=== PATIENT | female | born 1985 | race Asian ===

== ENCOUNTER 2020-01-23 06:00 | Day surgery (SDC) | payer BC, SELFPAY ==
[2020-01-17 10:35] LABS: ALBUMIN 4.1 g/dL (3.4-4.8); CALCIUM 8.5 mg/dL (8.4-11.0); CREATININE 0.54 mg/dL (0.55-1.30); POTASSIUM 4.4 mmol/L (3.5-5.1); TOTAL BILIRUBIN 0.8 mg/dL (0.0-1.0)
[2020-01-17 10:40] LABS: BASOPHILS % (AUTO) 0.6 % (0.0-2.0); EOSINOPHILS # (AUTO) 0.1 K/uL (0.0-0.4); EOSINOPHILS % (AUTO) 1.5 % (0.0-4.0); HEMATOCRIT 40.7 % (36-48); LYMPHOCYTES # (AUTO) 1.5 K/uL (1.0-5.5); LYMPHOCYTES % (AUTO) 26.9 % (20.5-51.5); MEAN CORPUSCULAR HEMOGLOBIN 32 pg (27-31); MEAN CORPUSCULAR HGB CONC 34 % (32-36); MEAN CORPUSCULAR VOLUME 92 fL (79.0-98.0); MONOCYTES # (AUTO) 0.2 K/uL (0.0-1.0); MONOCYTES % (AUTO) 3.6 % (1.7-9.3); NEUTROPHILS # (AUTO) 3.8 K/uL (1.8-7.7); NEUTROPHILS % (AUTO) 67.4 % (40.0-70.0); PLATELET COUNT (AUTO) 213 K/uL (130-430); RED BLOOD CELL COUNT(AUTO) 4.41 MIL/uL (4.2-6.2); RED CELL DISTRIBUTION WIDTH 13.1 % (9.0-15.0); WHITE BLOOD COUNT (AUTO) 5.6 K/uL (4.8-10.8)
[2020-01-17 10:52] LABS: INR 0.9 (0.8-1.2); PROTHROMBIN TIME 9.4 SECS (9.5-12.5)
[2020-01-17 11:43] LABS: BILIRUBIN,URINE NEGATIVE (NEGATIVE); BLOOD, URINE 3+ (NEGATIVE); CLARITY/URINE SL CLOUDY (CLEAR); COLOR,URINE YELLOW (YELLOW); GLUCOSE,URINE NEGATIVE (NEGATIVE); KETONES,URINE NEGATIVE (NEGATIVE); LEUKOCYTE ESTERASE ,URINE NEGATIVE (NEGATIVE); NITRITE, URINE NEGATIVE (NEGATIVE); PH,URINE 6.5 (5.0-8.0); PROTEIN URINE NEGATIVE (NEGATIVE); UROBILINOGEN,URINE 0.2 (0.2-1.0)
[2020-01-17 11:51] LABS: HCG,QUAL RESULT NEGATIVE (NEGATIVE)
[2020-01-17 12:18] LABS: BACTERIA,URINE FEW /HPF (None Seen)
[~2020-01-23] VITALS: Ht 165.1 cm; Wt 71.7 kg
[2020-01-23 06:29] LABS: HCG,QUAL RESULT NEGATIVE (NEGATIVE)
[2020-01-23] MEDS ORDERED: CEFAZOLIN SOD 2 GM in D5W 50 ML IV ONE (07:00)
[2020-01-23] MEDS ORDERED: HYDROmorphone 1 MG INJ. 1 MG/ML AMPUL IVP PRN ×2 (08:00)
[2020-01-23 09:07] VITALS: BP_SYST 122
[2020-01-23] MEDS ORDERED: PROPOFOL 200MG/ 20ML VIAL (DIPRIVAN) IV ONE (09:11)
[2020-01-23] MEDS ORDERED: DESFLURANE 15 MIN GAS INH ONE (09:11)
[2020-01-23] MEDS ORDERED: DEXAMETHASONE SOD PHOSPHATE 4 MG/ML VIAL ONE (09:11)
[2020-01-23] MEDS ORDERED: LR 1,000 ML IV.SOLN IV ONE (09:11)
[2020-01-23] MEDS ORDERED: EPINEPHrine 1 MG/ML AMP ONE (09:11)
[2020-01-23] MEDS ORDERED: PHENYLEPHRINE HCL 10 MG/ML VIAL (NEOSYNEPHRINE) ONE (09:11)
[2020-01-23] MEDS ORDERED: ONDANSETRON HCL 4 MG/2 ML VIAL ONE (09:11)
[2020-01-23] MEDS ORDERED: POTASSIUM IODIDE/IODINE 14 ML SOLUTION (LUGOL'S) ONE (09:11)
[2020-01-23] MEDS ORDERED: KETOROLAC TROMETHAMINE 30 MG VIAL ONE (09:11)
[2020-01-23] MEDS ORDERED: fentaNYL CITRATE/PF 100 MCG/2 ML AMP ONE (09:11)
[2020-01-23] MEDS ORDERED: NS IRRIG SOLN 1000 ML IR ONE (09:11)
[2020-01-23] MEDS ORDERED: ONDANSETRON HCL 4 MG/2 ML VIAL IVP PRN (09:15)
[2020-01-23] MEDS ORDERED: HYDROcodone/ACETAMIN 5-325 MG TAB (NORCO/ VICODIN) PO PRN ×2 (09:15)
[2020-01-23] MEDS ORDERED: HYDROmorphone 1 MG INJ. 1 MG/ML AMPUL ONE (09:22)
[2020-01-23] MEDS ORDERED: HYDROcodone/ACETAMIN 5-325 MG TAB (NORCO/ VICODIN) ONE (10:35)
== END 2020-01-23 11:45 | disposition home or self-care (01) ==
LOC: SMU 06:00 → SDS 06:00
PROVIDERS: ATTEND Obstetrics & Gynecology Gynecology
DX: D06.9 Carcinoma in situ of cervix, unspecified (principal); Z79.01 Long term (current) use of anticoagulants; Z79.899 Other long term (current) drug therapy
CPT/HCPCS: 36415 ×2; 57520; 80053; 81000; 84703 ×2; 85025; 85610; 85730; 86886 ×2; 86900 ×2; 86901 ×2; 87086; 88305; 88341; 88342; J0690; J1170; J7060; U0003; J0171; J1100; J1885; J2370; J2405; J2704; J3010; J7120